=== PATIENT | female | born 1945 | race African-American/Black ===

== ENCOUNTER 2016-09-24 19:47 | Inpatient (IN) ==
[2016-09-24] MEDS ORDERED: SODIUM CHLORIDE 0.9% 1,000 ML IV STA (20:14)
--- NOTE | 2016-09-24 20:19 | Emergency Department Note ---
Arrival - Arrival Chief Complaint: Dizziness Stated Complaint: dizziness and very weak ED Nursing Triage Note: C/O Dizziness/Generalized weakness. Onset last week sometime. Family reports that she came to visit her yesterday and she was really weak and had a low blood pressure. Pt reports that she went to the doctor last Sunday and they added a new blood pressure pill- pt states that she has been filling weak since then. Pt did not bring her medications and doesn't know what she takes. Pt reports taking her BP pills today- last took meds between [id number]. Right arm 64/44. Left arm 62/43. Mode of Arrival: Wheelchair Limitations: No Limitations Source: Patient, Family Time Seen by Provider: 09/24/16 20:14 - History of Present Illness HPI Narrative: This 70-year-old black female presents with several days of rapidly progressive profound weakness not associated with chest pain, shortness of breath, nausea, vomiting, chills, or fever. This follows alteration of her blood pressure medicines on Sunday of the past week in which the medicines were increased. She currently is quite hypotensive but alert and oriented 3 but drowsy. Onset (ago): day(s) (Patient presents several days post onset of symptoms) Date of Last Menstrual Period: hysterectomy Allergies/Adverse Reactions: Allergies Allergy/AdvReac Type Severity Reaction Status Date / Time No Known Allergies Allergy Verified 09/24/16 19:55 Home Medications: Home Medications Medication Instructions Recorded Confirmed Type Unable To Obtain [Unable to Obtain] 09/24/16 09/24/16 History Medical,Surgical,& Family Hx - Medical History Cardio: History of: Hypertension - Social History Smoking Status: Never smoker Frequency of Alcohol Use: None Type of Drug Use: None Exam Physical Examination: GENERAL: Well developed, well nourished elderly black female in no acute distress. HEENT: Normocephalic. No trauma. Moist mucous membranes. EOMI. PERRLA. ENT NML NECK: Supple. No adenopathy. CARDIAC: Regular. No murmurs. Heart rate 98 CHEST: Clear to auscultation. No respiratory distress. O2 97% ABDOMEN: Soft. Nontender. Active bowel sounds. EXTREMITIES: No trauma. Normal ROM. No pedal edema. SKIN: No diaphoresis. No rash. NEURO: Alert. Oriented 3. Motor, sensory, vibratory intact. No focal deficits. Vital Signs: Vital Signs Temperature 98.0 F 09/24/16 20:14 Pulse Rate 84 09/24/16 20:14 Respiratory Rate 18 09/24/16 20:14 Blood Pressure 70/53 09/24/16 20:14 O2 Sat by Pulse Oximetry 99 09/24/16 20:14 Course - Reevaluation(s) Reevaluation #1: Discussed with family the need for hospitalization given her blood pressure problems and kidney problems. - Consultations Consultation #1: Discussed with hospitalist service who will admit for further evaluation and treatment Results - Labs CBC & BMP: 09/24/16 20:19 09/24/16 20:19 Labs: I reviewed the lab and noted the elevated white blood cell count and the evidence of renal failure. I have also noted the infected urine. - Impressions EKG: Heart rate 90 with sinus rhythm with normal UT interval and QRS duration. Left atrial enlargement. Nonspecific ST changes. No acute injury pattern noted. - Diagnostic Findings Procedure: Chest x-ray: image reviewed by me, report reviewed by me (Normal chest) Disposition Clinical Impression: Iatrogenic hypotension, Chronic renal failure, Cystitis Case discussed with: patient, patient's family Disposition: Still a Patient Condition: Guarded Time of Disposition: 21:29
[2016-09-24 20:28] LABS: Basophils # 0.1 10*3/uL (0.0-0.2); Basophils % 0.7 % (0.0-0.8); Eosinophils # 0.4 10*3/uL (0.0-0.87); Eosinophils % 2.4 % (0.00-10.9); Hematocrit 37.8 VOL% (35.7-47.0); Hemoglobin 13.2 GM/DL (12.0-16.0); Immature Granulocytes % 0.5 %; Immature Granulocytes Absolute 0.07 #; Lymphocytes # 2.8 10*3/uL (1.4-4.0); Mean Corpuscular HGB Conc 34.9 GM/DL (32-36); Mean Corpuscular Hemoglobin 31 PG (27-34); Mean Corpuscular Volume 88.3 FL (87-102); Mean Platelet Volume 9.6 FL (9.6-12.0); Monocytes # 0.8 10*3/uL (0.11-0.8); Monocytes % 5.8 % (1.7-12.7); Neutrophils # 10.4 10*3/uL (1.4-7.4); Neutrophils % 71.6 % (38.7-73.9); Platelet Count 312 T/CUMM (130-400); Red Blood Count 4.28 MC/CUMM (3.8-5.5); Red Cell Distribution Width 13.8 % (9.3-17.3); White Blood Count 14.5 T/CUMM (4-12)
--- NOTE | 2016-09-24 20:32 | XRay Report ---
Portable chest. Indication: Shortness of breath. The heart is normal in size. The mediastinal contours are unremarkable. The pulmonary vasculature is normal. There is no consolidation, pneumothorax, or pleural effusion. Degenerative changes are noted within the spinal column and shoulders. Impression: No acute abnormality. PROCEDURE INTERPRETED AT [facility] DEPARTMENT OF RADIOLOGY Final Report Signed by: Dr. Lori Sharif
[2016-09-24 20:39] LABS: PT Patient Result 10.7 SECS
[2016-09-24 20:49] LABS: Apearance,Urine CLOUDY (Clear); Bacteria,Urine Moderate /HPF (Few); Bilirubin,Urine Negative (Negative); Blood, Urine Small mg/dL (Negative); Glucose,Urine (UA) Negative (Negative); Ketones,Urine Negative (Negative); Mucus,Urine Many /LPF (Occasional); Nitrite,Urine Negative (Negative); Protein,Urine 100 MG/DL; RBC,Urine 26 /HPF (0-4); Urine Color Amber (Yellow); Urine Specific Gravity 1.023 (1.001-1.035); Urine Urobilinogen < 2.0 EU/DL (0.2-1.0); WBC,Urine 74 /HPF (0-6)
[2016-09-24 21:01] LABS: Bilirubin,Total 0.4 MG/DL (0.2-1.0); Calcium 8.7 MG/DL (8.5-10.1); Osmolality,Calculated 291.5 MOS/KG (273-304); Potassium 4.2 MMOL/L (3.5-5.1); Total Protein 7.3 G/DL (6.4-8.3)
[2016-09-24] MEDS ORDERED: SODIUM CHLORIDE 0.9% 500 ML IV STA (21:01)
[2016-09-24 21:02] LABS: Troponin I Only < 0.015 NG/ML (0.00-0.045)
[2016-09-24] MEDS ORDERED: LEVOFLOXACIN INJ 500 MG in PREMIX 1 EACH IV STA (21:11)
[2016-09-24] MEDS ORDERED: LEVOFLOXACIN INJ 100 ML IV ONE (21:21)
[2016-09-24] MEDS ORDERED: ACETAMINOPHEN 325 MG TABLET PO PRN (22:23)
[2016-09-24] MEDS ORDERED: MORPHINE 2 MG/1 ML SYRINGE IV PRN (22:23)
[2016-09-24] MEDS ORDERED: ALBUTEROL/IPRATROPIUM 3 ML NEB RESP TX PRN (22:23)
[2016-09-24] MEDS ORDERED: ONDANSETRON 4 MG/2 ML VIAL IV PRN (22:23)
[2016-09-24] MEDS ORDERED: BISACODYL 5 MG TABLET PO PRN (22:23)
--- NOTE | 2016-09-24 22:28 | Hospitalist History & Physical ---
Assessment and Plan (1) Acute renal failure due to tubular necrosis Status: Acute Current Visit: Yes (2) Acute UTI Status: Acute Current Visit: Yes (3) History of hypertension Status: Acute Assessment and plan: Plan: Admit to ICU Aggressive IV fluid resuscitation, monitor urine output Hold all antihypertensives, obtain current medication list Start antibiotics for UTI Consult nephrology in a.m. Current Visit: Yes History of Present Illness Chief complaint: generalized weakness History of present illness: Ms. Zamora is a 70 year old female with HTN who reports general malaise, dizziness, lack of appetite for approximately 1 week. She also reports having an additional "blood pressure medicine," added to her regimen about 1 week ago. Since that time she's felt more sluggish, unsteady on her feet. Unfortunately we do not have a list of the names of medications that she is taking. She was found to have a creatinine of 7.3 in the ER, last lab that we have was normal. She has no known history of chronic kidney disease, CHF, or diabetes. Workup also revealed a UTI. Despite fluids she is hypotensive and drowsy however she is easily arousable. She will be admitted to the ICU for further management of hypotension due to UTI and possibly medication induced hypotension. Home Medications Medication Instructions Recorded Confirmed Type Unable To Obtain [Unable to Obtain] 09/24/16 09/24/16 History Allergies Allergy/AdvReac Type Severity Reaction Status Date / Time No Known Allergies Allergy Verified 09/24/16 19:55 Medical,Surgical,& Family Hx - Medical History Cardio: History of: Hypertension Neurology: No history of: Cerebrovascular Accident Endocrine: No history of: Diabetes Mellitus (NIDDM) Respiratory: No history of: COPD - Surgical History Additional Surgical History: Unknown surgical history - Family History Family History: Reports;: Family Hypertension - Social History Smoking Status: Never smoker Frequency of Alcohol Use: None Type of Drug Use: None Marital Status: Unknown Lives With:: Alone Functional capacity: independent ambulation Review of systems: A 12 point review of systems is negative except as specified in the HPI Exam - Constitutional Vitals: Period Temp Pulse Resp BP Sys/Pena Pulse Ox Last 24 Hr 98.0 F-98.0 F 84-97 16-21 62-71/43-53 97-99 Exam: EXAM: CONSTITUTIONAL: non toxic, NAD HEENT: NC, AT, OP benign, LELA, EOMI CV: RRR no m/g/r RESP: clear B/L, no w/r/r GI: abd soft, NT, ND, +bowel sounds : Ervin catheter present draining very dark brown urine INTEGUMENTARY: no lesions or rash EXTREMITIES: no c/c/e NEURO: no focal deficits PSYCH: Drowsy but easily arousable, oriented Results - Labs CBC & BMP: 09/24/16 20:19 09/24/16 20:19 Lab Results: I have reviewed the past 24 hour labs - EKG EKG shows: sinus rhythm - Diagnostic Findings Procedure: Chest x-ray: image reviewed by me, report reviewed by me
[2016-09-25] MEDS: SODIUM CHLORIDE 0.9% 1,000 ML IV SCH ×4 (00:03→21:45)
[2016-09-25] MEDS: cefTRIAXone 1,000 MG in SODIUM CHLORIDE 0.9% 100 ML IV SCH (00:03)
[2016-09-25] MEDS ORDERED: SODIUM CHLORIDE 0.9% 1,000 ML IV ONE ×2 (01:42→04:01)
--- NOTE | 2016-09-25 02:38 | EKG Report ---
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
[2016-09-25 05:14] LABS: Basophils # 0.1 10*3/uL (0.0-0.2); Basophils % 0.4 % (0.0-0.8); Eosinophils # 0.3 10*3/uL (0.0-0.87); Hematocrit 34.4 VOL% (35.7-47.0); Hemoglobin 11.5 GM/DL (12.0-16.0); Immature Granulocytes % 0.6 %; Immature Granulocytes Absolute 0.09 #; Lymphocytes # 2.9 10*3/uL (1.4-4.0); Lymphocytes % 17.8 % (21.3-54.2); Mean Corpuscular HGB Conc 33.4 GM/DL (32-36); Mean Corpuscular Hemoglobin 31 PG (27-34); Mean Corpuscular Volume 91.5 FL (87-102); Mean Platelet Volume 9.6 FL (9.6-12.0); Monocytes # 0.9 10*3/uL (0.11-0.8); Monocytes % 5.8 % (1.7-12.7); Neutrophils # 11.7 10*3/uL (1.4-7.4); Neutrophils % 73.4 % (38.7-73.9); Platelet Count 262 T/CUMM (130-400); Red Blood Count 3.76 MC/CUMM (3.8-5.5)
[2016-09-25 05:42] LABS: Alanine Aminotransferase 14 U/L (13-56); Albumin 2.9 G/DL (3.4-5.0); Alkaline Phosphatase 56 U/L (45-117); Aspartate Amino Transferase 13 U/L (0-37); Bilirubin,Total < 0.39 MG/DL (0.2-1.0); Blood Urea Nitrogen 46 MG/DL (7-18); Calcium 7.2 MG/DL (8.5-10.1); Glucose 85 MG/DL (74-106); Magnesium 2.3 MG/DL (1.8-2.4); Potassium 4.3 MMOL/L (3.5-5.1); Sodium 143 MMOL/L (136-145); Total Protein 5.7 G/DL (6.4-8.3)
[2016-09-25 05:53] LABS: Lactic Acid 0.7 MMOL/L (0.4-2.0)
--- NOTE | 2016-09-25 09:43 | Hospitalist Progress Note ---
Assessment and Plan - Time spent with patient Time spent with patient: Greater than 30 minutes (1) Acute renal failure due to tubular necrosis Status: Acute Assessment and plan: Follow-up renal ultrasound. Follow-up nephrology consult. Okay to transfer to the floor. This patient's renal failure is thought to be secondary to medications- likely those for hypertension. At this time the patient's home medications are not available for reconciliation. All nephrotoxic medications are held and she is receiving IV fluids. Her creatinine is improving and she is making urine. Current Visit: Yes (2) Acute UTI Status: Acute Assessment and plan: Patient receiving Rocephin. Follow-up cultures. Current Visit: Yes (3) History of hypertension Status: Chronic Assessment and plan: Hold medications at this time due to relative hypotension and acute renal failure Current Visit: Yes Hospitalist: Subjective Interval history: Patient seen and examined. No acute events overnight. Case discussed with nursing staff. Labs reviewed. History and physical reviewed. Patient with good urine output overnight. Blood pressure has normalized. Creatinine is improving. Nephrology consult pending. Exam - Constitutional Vitals: Period Temp Pulse Resp BP Sys/Pena Pulse Ox Last 24 Hr 97.0 F-98.0 F 84-102 13-21 62-105/43-60 97-100 Exam: Constitutional System: No distress. No tremulousness. Head: Normocephalic, atraumatic. Ears, Nose and Throat System: No pain or tenderness. No epistaxis or discharge Eyes System: Pupils equal, round, and reactive. Extraocular muscles intact. Neck: Supple, without adenopathy, No jugular venous distention. No thyromegaly, neck mass, or prior surgery apparent. Respiratory System: Chest clear to auscultation. Cardiovascular System: Heart with regular rate and rhythm. No murmur. GI System: Abdomen soft, nontender. Normo active bowel sounds present. Musculoskeletal System: limbs with no pedal edema. Full distal pulses. Neurological System: No discernable sensory deficit. No aphasia Psychiatric System: Conversation is rational Results - Labs CBC & BMP: 09/25/16 04:42 09/25/16 04:42 Lab Results: I have reviewed the past 24 hour labs
[2016-09-25] MEDS: PANTOPRAZOLE 40 MG TABLET PO SCH (09:47)
--- NOTE | 2016-09-25 11:43 | Nephrology Consult Note ---
History of Present Illness Chief complaint: ARF History of present illness: Ms. Zamora is a 70 year old female who presented with a several day history of progressive weakness. She was noted to be hypotensive at the time of admission. Renal function was significantly abnormal. She has no known history of renal failure. She denies dysuria or hematuria. She has no history of nephrolithiasis. Norvasc was added to her antihypertensive regimen recently. She states she is felt weak since then. Her daughter states that she took valsartan prior to this. She denies NSAID use Home Medications Medication Instructions Recorded Confirmed Type Amlodipine Besylate [Amlodipine 1 tablet PO DAILY 09/25/16 09/25/16 History Besylate] Hydrocodone/Acetaminophen 1 tablet PO Q12HR 09/25/16 09/25/16 History [Hydrocodon-Acetaminophn 10-325] Ibuprofen [Ibuprofen] 1 tablet PO Q8HR PRN 09/25/16 09/25/16 History Meloxicam [Meloxicam] 1 tablet PO DAILY PRN 09/25/16 09/25/16 History Morphine Sulfate [Morphine Sulfate 30 mg PO Q12HR 09/25/16 09/25/16 History ER] Omeprazole [Omeprazole] 1 capsule PO BID 09/25/16 09/25/16 History Temazepam [Temazepam] 1 capsule PO BEDTIME PRN 09/25/16 09/25/16 History Valsartan/Hydrochlorothiazide 1 tablet PO DAILY 09/25/16 09/25/16 History [Valsartan-Hctz 160-12.5 mg Tab] Allergies Allergy/AdvReac Type Severity Reaction Status Date / Time No Known Allergies Allergy Verified 09/24/16 19:55 Medical,Surgical,& Family Hx - Medical History Cardio: History of: Hypertension Neurology: No history of: Cerebrovascular Accident Endocrine: No history of: Diabetes Mellitus (NIDDM) Respiratory: No history of: COPD Musculoskeletal: History of: Back/Neck Problems (back pain/arthritis) - Surgical History Thoracic Surgeries: Patient denies;: Organ Transplant Reproductive Surgeries: Surgical HX of;: Hysterectomy - Family History Family History: Reports;: Family Cancer (colon), Family Diabetes, Family Hypertension - Social History Smoking Status: Never smoker Frequency of Alcohol Use: None Type of Drug Use: None Review of Systems 12 point system: reviewed and no additional remarkable complaints except as stated Exam - Vital Signs Vital signs: Period Temp Pulse Resp BP Sys/Pena Pulse Ox Last 24 Hr 97.0 F-98.0 F 84-102 13-21 62-105/43-60 97-100 Exam: Gen.: Alert and oriented x3. ENT: Pupils equal round reactive to light. EOMs intact. Mucous membranes moist. Neck: Supple. No JVD or bruit. Cardiovascular: Regular rate and rhythm. No murmur rub or gallop Lungs: Clear Abdomen: Soft. Nontender. Positive bowel sounds. No organomegaly Extremities: No edema Results - Labs CBC & BMP: 09/25/16 04:42 09/25/16 04:42 Assessment and Plan (1) Acute renal failure Status: Acute Assessment and plan: 70-year-old woman with: * ARF. This appears to be due to hypotension. She was on an ARB prior to admission. She also has evidence of urinary tract infection. Continue current antibiotics. Renal ultrasound is pending. Antihypertensives held * Hypotension * UTI * Osteoarthritis Current Visit: Yes (2) Hypotension Status: Acute Current Visit: Yes (3) History of hypertension Status: Chronic Current Visit: Yes (4) UTI (urinary tract infection) Status: Acute Current Visit: Yes
--- NOTE | 2016-09-25 12:38 | Ultrasound Report ---
Renal ultrasound. Indication: Acute renal failure. No prior studies. The right kidney measures 11.4 x 4.2 x 5.8 cm. The left kidney measures 10.0 x 5.9 x 5.9 cm. The parenchymal echogenicity is normal. The cortical thickness is normal bilaterally. No hydronephrosis. No cystic or solid masses. Arterial flow is documented to each kidney. Impression: No abnormality is seen. PROCEDURE INTERPRETED AT [facility] DEPARTMENT OF RADIOLOGY Final Report Signed by: Dr. Lori Sharif
[2016-09-26] MEDS: cefTRIAXone 1,000 MG in SODIUM CHLORIDE 0.9% 100 ML IV SCH (00:22)
[2016-09-26] MEDS: SODIUM CHLORIDE 0.9% 1,000 ML IV SCH ×3 (00:26→10:56)
[2016-09-26 06:26] LABS: Osmolality,Calculated 289.8 MOS/KG (273-304)
[2016-09-26] MEDS: PANTOPRAZOLE 40 MG TABLET PO SCH (08:42)
--- NOTE | 2016-09-26 08:58 | Hospitalist Progress Note ---
Assessment and Plan (1) Acute renal failure Status: Acute Assessment and plan: Likely due to hypotension due to medications and volume depletion with added effect of combined angiotensin receptor blockers and NSAIDs which she had been using prior to coming to the hospital. Although she had some WBC clumps on urinalysis for remarkable improvement from renal failure with hydration, it seems unlikely that she had interstitial nephritis. We will continue hydration for now Current Visit: Yes (2) Pyuria Status: Acute Assessment and plan: Patient has pyuria on admission without any symptoms of UTI urine culture so far negative we will continue to follow and remain on antibiotics I will repeat a urinalysis today Current Visit: Yes (3) Acidosis Status: Acute Assessment and plan: Likely due to patient being on normal saline for hydration. I will change to include bicarbonate and IV fluid Current Visit: Yes (4) History of hypertension Status: Chronic Assessment and plan: Patient was admitted with hypotension. Blood pressure now is in acceptable range I will continue to hold antihypertensive medication Current Visit: Yes Hospitalist: Subjective Interval history: Ms. Zamora is a 70 year old female with HTN and had a recent medication adjustment amlodipine was added to valsartan. Associated with this she had diarrhea after antibiotic given for some "" abdominal infection "she had diarrhea following that and developed generalized weakness dizziness for about a week. Since that time she's felt more sluggish, unsteady on her feet. She was admitted with the hypertension blood pressure was in 70s and noted to have acute kidney injury with a creatinine of 7.3. She had been hydrated. She was in ICU and was transferred after stabilized. She was also noted to have pyuria and has been on Rocephin. She has no diarrhea abdominal she has been voiding well. She did report no bowel movement for 2 days prior to that she had diarrhea she did have some epigastric pain after she drank juice this morning but denies any vomiting. Exam - Constitutional Vitals: Period Temp Pulse Resp BP Sys/Pena Pulse Ox Last 24 Hr 97.9 F-99.5 F 92-109 13-22 93-124/53-63 95-99 General appearance: no acute distress - Respiratory Respiratory exam: Present: clear to auscultation bilaterally. Absent: rales, rhonchi - Cardiovascular Cardiovascular exam: Present: regular rate and rhythm. Absent: tachycardia - GI/Abdominal GI/Abdominal exam: Present: normal bowel sounds, soft. Absent: distended, tenderness - Extremities Exam Extremities exam: Present: normal inspection. Absent: edema - Neurological Exam Neurological exam: Present: alert, oriented X3 Results - Labs CBC & BMP: 09/25/16 04:42 09/26/16 04:08 Lab Results: I have reviewed the past 24 hour labs
[2016-09-26] MEDS: SODIUM ACETATE 50 MEQ in SODIUM CHLORIDE 0.45% 1,000 ML IV SCH ×3 (10:45→22:14)
--- NOTE | 2016-09-26 12:42 | Nephrology Progress Note ---
Nephrology - PN: Subj Interval history: She feels much better overall today. No shortness of breath or GI symptoms. Exam (PN)-Nephrology - Vital Signs Vital signs: Period Temp Pulse Resp BP Sys/Pena Pulse Ox Last 24 Hr 97.5 F-99.5 F 92-112 16-22 93-138/53-68 95-97 Exam: ENT: Normal Cardiovascular: Regular rate and rhythm. No murmur rub or gallop Lungs: Clear Extremities: No edema - Lab 09/25/16 04:42 09/26/16 04:08 Most recent lab results Calcium 8.0 MG/DL (8.5-10.1) L 09/26/16 04:08 Magnesium 2.3 MG/DL (1.8-2.4) 09/25/16 04:42 Assessment and Plan (1) Acute renal failure Status: Acute Assessment and plan: 70-year-old woman with: * ARF. This is improving quickly now that her blood pressure is normal. Decrease IV rate to 75/h * Hypotension. Resolved * UTI * Osteoarthritis Current Visit: Yes (2) Hypotension Status: Acute Current Visit: Yes (3) History of hypertension Status: Chronic Current Visit: Yes (4) UTI (urinary tract infection) Status: Acute Current Visit: Yes
[2016-09-27] MEDS: cefTRIAXone 1,000 MG in SODIUM CHLORIDE 0.9% 100 ML IV SCH (00:15)
[2016-09-27 05:05] LABS: Basophils # 0.1 10*3/uL (0.0-0.2); Eosinophils # 0.2 10*3/uL (0.0-0.87); Eosinophils % 2.6 % (0.00-10.9); Hematocrit 30.7 VOL% (35.7-47.0); Hemoglobin 11.1 GM/DL (12.0-16.0); Immature Granulocytes % 0.5 %; Immature Granulocytes Absolute 0.04 #; Lymphocytes % 25.1 % (21.3-54.2); Mean Corpuscular HGB Conc 36.2 GM/DL (32-36); Mean Corpuscular Hemoglobin 31 PG (27-34); Mean Corpuscular Volume 84.6 FL (87-102); Mean Platelet Volume 10.2 FL (9.6-12.0); Monocytes # 0.5 10*3/uL (0.11-0.8); Monocytes % 6.7 % (1.7-12.7); Neutrophils # 5.1 10*3/uL (1.4-7.4); Neutrophils % 64.1 % (38.7-73.9); Platelet Count 266 T/CUMM (130-400); Red Blood Count 3.63 MC/CUMM (3.8-5.5); Red Cell Distribution Width 13.2 % (9.3-17.3)
[2016-09-27 05:35] LABS: Osmolality,Calculated 284.8 MOS/KG (273-304); Potassium 3.5 MMOL/L (3.5-5.1)
[2016-09-27 07:42] LABS: Apearance,Urine CLEAR (Clear); Bilirubin,Urine Negative (Negative); Blood, Urine Negative (Negative); Glucose,Urine (UA) Negative (Negative); Ketones,Urine 20 mg/dL (Negative); Mucus,Urine Occasional /LPF (Occasional); Nitrite,Urine Negative (Negative); Protein,Urine Negative; RBC,Urine 1 /HPF (0-4); Squamous Epithelial Cell,Urine Occasional /HPF (0-10); Urine Color Straw (Yellow); Urine Specific Gravity 1.006 (1.001-1.035); Urine Urobilinogen < 2.0 EU/DL (0.2-1.0); WBC,Urine 2 /HPF (0-6)
[2016-09-27 08:38] VITALS: BP 155/68
--- NOTE | 2016-09-27 08:58 | Discharge Summary ---
Hospital Course - Hospital Course Hospital Course: Ms. Zamora is a 70 year old female with HTN and had a recent medication adjustment amlodipine was added to valsartan. Associated with this she had diarrhea after antibiotic given for some "" abdominal infection "she had diarrhea following that and developed generalized weakness dizziness for about a week. Since that time she's felt more sluggish, unsteady on her feet. She was admitted with the hypertension blood pressure was in 70s and noted to have acute kidney injury with a creatinine of 7.3. She had been hydrated. She was in ICU and was transferred after stabilized. She was also noted to have pyuria and has been on Rocephin. Patient was taking NSAIDs also prior to admission. She was admitted to ICU and had an type of antihypertensive medication held. She received IV fluids and nephrology was also on board. She responded well to IV fluids and her renal function progressively improved this morning her creatinine 0.8 with a BUN of 11. She had hemoglobin 13.2 on admission and a yesterday it was down to 11.5 after hydration. Today her hemoglobin 11.1 she remained on IV fluid but the rate was dropped to 75 cc yesterday. She will also suspected to have a UTI on admission with pyuria, her white count was 14.5 yesterday on admission it was 16 yesterday. This morning her white count is 8.0 repeat urinalysis today did not reveal only one WBC. She has received 3 days of ceftriaxone. She is voiding well and has no urinary symptoms. I will continue with Keflex for 4 more days to complete 1 week as her white count was elevated although she was not febrile. Her blood pressure is marginally elevated at present recent reading is 155/68. I asked her to check blood pressure at home and she can start back on her valsartan/HCTZ but hold amlodipine if her blood pressure stay consistently above 150/90. She does not need to start if her blood pressure within target. She needs to follow-up with her primary care provider within the week for blood pressure management. She needs to avoid NSAIDs as much possible and stay hydrated Diagnosis - Discharge Diagnosis (1) Acute renal failure Status: Resolved (2) Pyuria Status: Acute (3) Acidosis Status: Resolved (4) History of hypertension Status: Chronic Discharge Plan - Discharge Data Disposition: Disch To Home/Self Care Condition at Discharge: Stable Discharge Diet: low salt diet Activity: resume usual activities as tolerated - Discharge Medications Continue Hydrocodone/Acetaminophen [Hydrocodon-Acetaminophn 10-325] 1 tablet PO Q12HR Omeprazole 1 capsule PO BID Valsartan/Hydrochlorothiazide [Valsartan-Hctz 160-12.5 mg Tab] 1 tablet PO DAILY Morphine Sulfate [Morphine Sulfate ER] 30 mg PO Q12HR Temazepam 1 capsule PO BEDTIME PRN PRN Reason: Sleep Discontinued Ibuprofen [Ibuprofen] 1 tablet PO Q8HR PRN PRN Reason: Pain Moderate (4-7) Meloxicam [Meloxicam] 1 tablet PO DAILY PRN PRN Reason: Pain Moderate (4-7) Amlodipine Besylate [Amlodipine Besylate] 1 tablet PO DAILY - Follow Up or Referral - Forms/Instructions Exam - Constitutional Vitals: Period Temp Pulse Resp BP Sys/Pena Pulse Ox Last 24 Hr 97.3 F-99.1 F 85-96 18-20 133-155/68-81 96-99 General appearance: no acute distress - Respiratory Respiratory exam: Present: clear to auscultation bilaterally. Absent: rales, rhonchi - Cardiovascular Cardiovascular exam: Present: regular rate and rhythm. Absent: tachycardia - GI/Abdominal GI/Abdominal exam: Present: normal bowel sounds, soft. Absent: distended, tenderness - Extremities Exam Extremities exam: Present: normal inspection. Absent: edema - Neurological Exam Neurological exam: Present: alert, oriented X3 Discharge Results Procedures and tests throughout hospitalization: Pending Orders 09/24/16 22:26 Blood Culture Stat 09/28/16 04:00 BMP [Basic Metabolic Panel] IN AM Labs on day of discharge: Labs from last 24 hours 09/27/16 09/27/16 09/27/16 04:08 04:08 04:00 WBC 8.0 D RBC 3.63 L Hgb 11.1 L Hct 30.7 L MCV 84.6 L MCH 31 MCHC 36.2 H RDW 13.2 Plt Count 266 MPV 10.2 Neut % (Auto) 64.1 Lymph % (Auto) 25.1 [place] % (Auto) 6.7 Eos % (Auto) 2.6 Baso % (Auto) 1.0 H Neut # (Auto) 5.1 Lymph # (Auto) 2.0 [place] # (Auto) 0.5 Eos # (Auto) 0.2 Baso # (Auto) 0.1 Immature Gran % 0.5 Nucleated RBC % 0.0 Immature Gran # 0.04 Nucleated RBCs # 0.00 Sodium 144 Potassium 3.5 Chloride 114 H Carbon Dioxide 21 Anion Gap 12.5 BUN 11 D Creatinine 0.80 GFR Calculation 82 BUN/Creatinine Ratio 13.00 Glucose 92 Calculated Osmolality 284.8 Calcium 8.0 L Urine Color Straw Urine Appearance Clear Urine pH 6.0 Ur Specific [place] 1.006 Urine Protein Negative Urine Glucose (UA) Negative Urine Ketones 20 Urine Blood Negative Urine Nitrate Negative Urine Bilirubin Negative Urine Urobilinogen < 2.0 H Urine Leukocytes Negative Urine RBC 1 Urine WBC 2 Ur Squamous Epith Cells Occasional Urine Mucus Occasional Ur Culture Indicated? Not indicated Preliminary micro results at discharge 09/25/16 00:11 Blood Culture - Preliminary Blood No growth at 1 day 09/25/16 00:11 Blood Culture - Preliminary Blood No growth at 1 day DS: Provider Date of admission: 09/24/16 22:23 Primary care physician: . No PCP Attending physician on admission: Trav Mandel DO Consults: 09/24/16 22:26 Consult to Physician [CONS] Routine Comment: acute severe renal failure Consulting Provider: Aleksandr Hernandez Consult to Specialist Group: Nephrology When should Consulting Provider be notified: In am Person Notified: [email or web address] Date Notified: 09/25/16 Time Notified: 09:00 09/24/16 23:50 Consult to Dietitian [CONS] Routine Reason for Dietitian: Dietary Consult Discharging clinician: Aravind Saldivar MD
[2016-09-27] MEDS: PANTOPRAZOLE 40 MG TABLET PO SCH (09:43)
== END 2016-09-27 11:44 | disposition home or self-care (01) | DRG 314 ==
LOC: N.ED 19:47 → N.EDINP 22:23 → SUATTDRO 22:23 → N.CC 23:25 → N.5E 09-25 13:38
PROVIDERS: ADMIT Internal Medicine; ATTEND Internal Medicine